=== PATIENT | female | born 1985 | race Asian ===

== ENCOUNTER 2016-09-20 14:52 | Emergency (ER) | payer OTHER | END 2016-09-20 15:36 | disposition home or self-care (01) | LOC: EDUNIT# 14:52 → EEVIPCON 14:53 → EMS 14:53 | DX: K27.9 Peptic ulcer, site unspecified, unspecified as acute or chronic, without hemorrhage or perforation (principal) | CPT/HCPCS: 99283 ==

== ENCOUNTER → 2017-05-05 | Outpatient (CLI) | payer OTHER | END | disposition home or self-care (01) | LOC: EMPHLTH 12:12 | PROVIDERS: ATTEND Internal Medicine | DX: R76.11 Nonspecific reaction to tuberculin skin test without active tuberculosis (principal) ==

== ENCOUNTER 2017-10-13 15:49 | Emergency (ER) | payer OTHER ==
[~2017-10-13] VITALS: Ht 157.5 cm; Wt 59.1 kg
[2017-10-13 15:52] VITALS: BP 155/93
== END 2017-10-13 17:38 | disposition left against medical advice (07) ==
LOC: EEVIPCON 15:52 → EMS 15:52
DX: M54.2 Cervicalgia (principal); R51 Headache; V89.2XXA Person injured in unspecified motor-vehicle accident, traffic, initial encounter; Y93.89 Activity, other specified; Y92.89 Other specified places as the place of occurrence of the external cause; Y99.8 Other external cause status; Z53.21 Procedure and treatment not carried out due to patient leaving prior to being seen by health care provider

== ENCOUNTER 2017-10-14 10:15 | Emergency (ER) | payer OTHER ==
[~2017-10-14] VITALS: Ht 157.5 cm; Wt 60.5 kg
[2017-10-14 10:21] VITALS: BP 113/55
[2017-10-14] MEDS ORDERED: KETOROLAC TROMETHAMINE 60 MG/2 ML VIAL IM ONE (11:30)
[2017-10-14] MEDS ORDERED: METHOCARBAMOL 500 MG TABLET PO ONE (11:30)
== END 2017-10-14 12:03 | disposition home or self-care (01) ==
LOC: EMS 10:16
DX: S16.1XXA Strain of muscle, fascia and tendon at neck level, initial encounter (principal); V43.52XA Car driver injured in collision with other type car in traffic accident, initial encounter; Y93.89 Activity, other specified; Y92.488 Other paved roadways as the place of occurrence of the external cause; Y99.8 Other external cause status
CPT/HCPCS: 96372; 99283; J1885